=== PATIENT | male | born 1990 | race Asian ===

== ENCOUNTER 2024-09-15 04:56 | Emergency (ER) | payer OTHER ==
[~2024-09-15] VITALS: Ht 170.2 cm; Wt 80.0 kg
[2024-09-15 05:04] VITALS: O2SAT 98
[2024-09-15] MEDS: IBUPROFEN 600MG TABLET PO ONE (06:15)
[2024-09-15 06:33] LABS: BASOPHILS % 0.6 % (0.0-2.0); EOSINOPHILS % 2.6 % (0.0-5.0); HEMATOCRIT. 42.4 % (42.0-52.0); HEMOGLOBIN. 14.3 g/dL (14.0-18.0); LYMPHOCYTES % 16.0 % (20.0-50.0); MEAN PLATELET VOLUME 8.5 fl (7.4-10.4); MONOCYTES % 9.5 % (2.0-8.0); NEUTROPHILS % 71.3 % (40.0-76.0); PLATELET 346 x1000/uL (130-400); RED BLOOD CELL COUNT 4.68 mill/uL (4.7-6.1); RED CELL DISTRIBUTION WIDTH 14.3 % (11.6-14.6)
[2024-09-15 06:54] LABS: CREATININE 0.8 mg/dL (0.6-1.3)
[2024-09-15 06:55] LABS: UREA NITROGEN BLOOD 10 mg/dL (9-23)
[2024-09-15 06:56] LABS: TROPONIN I HIGH SENSITIVITY < 4 ng/L (3.0-53)
[2024-09-15 08:01] VITALS: BP 118/79; PULSE 90; RESP 21; TEMP 36.7; O2SAT 99
== END 2024-09-15 08:03 | disposition home or self-care (01) ==
LOC: ER 04:56
DX: R07.89 Other chest pain (principal); R07.9 Chest pain, unspecified; F17.200 Nicotine dependence, unspecified, uncomplicated
CPT/HCPCS: 36415; 71045; 80048; 84484; 85025; 85379; 93005; 99285; A4606